=== PATIENT | female | born 1985 | race Two or more races ===

== ENCOUNTER 2022-12-29 05:28 | Day surgery (SDC) | payer OTHER ==
[~2022-12-29] VITALS: Ht 149.9 cm; Wt 54.4 kg
== END 2022-12-29 14:30 | disposition home or self-care (01) ==
LOC: CIR.AMB 05:28
PROVIDERS: ATTEND Colon & Rectal Surgery
DX: D12.9 Benign neoplasm of anus and anal canal (principal); D12.8 Benign neoplasm of rectum; K64.8 Other hemorrhoids; K64.4 Residual hemorrhoidal skin tags; Z20.822 Contact with and (suspected) exposure to COVID-19